=== PATIENT | female | born 1970 | race Caucasian/White ===

== ENCOUNTER 2019-03-05 20:14 | Emergency (ER) | payer OTHER ==
[2019-03-05] MEDS ORDERED: NS(*) 0.9% 1000 ML BAG 1,000 ML IV ONE (20:26)
--- NOTE | 2019-03-05 20:26 | ER Report ---
History and Physical Time Seen By MD: 20:20 Hx. of Stated Complaint: FACE/NECK SWOLLEN. HAS BEEN COUGHING UP GREEN STUFF, CONGESTED, EARS HURT HPI/ROS CHIEF COMPLAINT: Difficulty breathing HISTORY OF PRESENT ILLNESS: 48-year-old female who recently moved here from [place] with mental health problems on medication. She was in a psychiatric facility after her committed suicide. Patient's on medication appropriate to her diagnoses. Patient now notes increasing shortness of breath for one week. She has a productive cough of green and yellow sputum. She notes some low-grade fevers. Today she comes in with severe shortness of breath. She does not where O2. Her room air pulse ox was 68% on arrival. She was placed on supplemental O2 by nasal cannula and her saturations rapidly rising 4 L into the low 90s. She denies chest pain or leg swelling. REVIEW OF SYSTEMS: Respiratory: As above Cardiovascular: No chest pain, no palpitations. Gastrointestinal: No vomiting, no abdominal pain. Musculoskeletal: No back pain. Allergies: Coded Allergies: aspirin (Verified Allergy, Intermediate, 03/05/19) Home Meds Active Scripts Albuterol Sulfate (PROVENTIL HFA) 6.7 Gm Inh, 2 PUFF INH Q4-6H PRN for difficulty breathing, #1 INH 2 Refills Prov:ANTOINE FLORES DO 03/05/19 Albuterol Sulfate 0.083% (ALBUTEROL SULFATE 0.083%) 2.5 Mg/3 Ml Vial.neb, 2.5 MG INH Q6H PRN for difficulty breathing, #25 INH 1 Refill Prov:ANTOINE FLORES DO 03/05/19 Prednisone (PREDNISONE) 20 Mg Tablet, 20 MG PO QDAY for reduce lung inflamm ation, #12 2 by mouth daily for 4 days then 1 by mouth daily for 4 days Prov:ANTOINE FLORES DO 03/05/19 Cefuroxime Axetil (CEFUROXIME) 500 Mg Tablet, 500 MG PO BID for infection, #14 TAB Prov:ANTOINE FLORES DO 03/05/19 Reported Medications Lisinopril (LISINOPRIL) 20 Mg Tablet, 20 MG PO QDAY, TAB 03/05/19 Escitalopram Oxalate (ESCITALOPRAM OXALATE) 10 Mg Tablet, 10 MG PO QDAY, TAB 03/05/19 Quetiapine Fumarate (QUETIAPINE FUMARATE) 200 Mg Tablet, 200 MG PO 6/20/19 Omeprazole (OMEPRAZOLE) 20 Mg Capsule.dr, 1 CAP PO QDAY, CAP 03/05/19 Past Medical/Surgical History Mental health disorder, hypertension, COPD, not O2 dependent Reviewed Nurses Notes: Yes Old Medical Records Reviewed: Yes Constitutional Vital Sign - Last 24 Hours 03/05/19 03/05/19 03/05/19 03/05/19 20:19 20:26 20:29 20:30 Temp 98.5 Pulse 107 86 Resp 20 B/P (MAP) 198/107 152/94 (113) Pulse Ox 68 96 O2 Delivery Room Air O2 Flow Rate 3.0 03/05/19 03/05/19 03/05/19 03/05/19 20:44 20:54 20:54 20:59 Pulse 85 78 75 Resp 18 Pulse Ox 94 95 97 O2 Delivery Nasal Cannula O2 Flow Rate 3.0 03/05/19 03/05/19 03/05/19 03/05/19 21:14 21:29 21:34 21:44 Pulse 73 79 76 82 Resp 18 Pulse Ox 100 100 95 03/05/19 03/05/19 03/05/19 03/05/19 21:59 22:24 22:34 22:39 Pulse 83 78 79 B/P (MAP) 145/83 (103) Pulse Ox 90 95 91 03/05/19 03/05/19 03/05/19 03/05/19 22:54 23:09 23:24 23:39 Pulse 82 84 81 76 Pulse Ox 92 91 90 88 Intake and Output 03/05/19 03/05/19 03/06/19 15:01 23:01 07:01 Intake Total 1000 ml Balance 1000 ml Physical Exam Moderate air hunger, pulse ox 68% on room air. General Appearance: The patient is alert, has no immediate need for airway protection and no current signs of toxicity. Slightly pale appearing, skin warm and dry HEENT: Pupils equal and round no injection. TMs normal, oropharynx with moderate erythema, no exudate Respiratory: Decreased breath sounds throughout, expiratory wheezing throughout, along inspiration Cardiac: regular rate and rhythm Gastrointestinal: Abdomen is soft and non tender, no masses, bowel sounds normal. Musculoskeletal: Neck: Neck is supple and non tender. No JVD, no lymphadenopathy Extremities have full range of motion and are non tender. No edema, no calf tenderness Skin: No rashes or lesions. DIFFERENTIAL DIAGNOSIS: After history and physical exam differential diagnosis was considered for shortness of breath including but not limited to pulmonary infectious process, COPD, asthma, pulmonary embolus and congestive heart failure. Medical Decision Making Data Points Result Diagram: 03/05/19204403/05/192044 Laboratory Hematology Test 03/05/19 20:45 Red Blood Count 4.68 M/uL (4.17-5.56) Mean Corpuscular Volume 85.0 fL (80.0-96.0) Mean Corpuscular Hemoglobin 28.5 pg (26.0-33.0) Mean Corpuscular Hemoglobin Concent 33.5 g/dL (32.0-36.0) Red Cell Distribution Width 14.0 % (11.5-14.5) Mean Platelet Volume 8.0 fL (7.2-11.1) Neutrophils (%) (Auto) 60.5 % (39.4-72.5) Lymphocytes (%) (Auto) 28.3 % (17.6-49.6) Monocytes (%) (Auto) 8.6 % (4.1-12.4) Eosinophils (%) (Auto) 1.6 % (0.4-6.7) Basophils (%) (Auto) 1.0 % (0.3-1.4) Nucleated RBC Relative Count (auto) 0.1 /100WBC Neutrophils # (Auto) 5.4 K/uL (2.0-7.4) Lymphocytes # (Auto) 2.5 K/uL (1.3-3.6) Monocytes # (Auto) 0.8 K/uL (0.3-1.0) Eosinophils # (Auto) 0.1 K/uL (0.0-0.5) Basophils # (Auto) 0.1 K/uL (0.0-0.1) Nucleated RBC Absolute Count (auto) 0.01 K/uL D-Dimer Quantitative (PE/DVT) 0.69 ug/ml (0-0.50) Sodium Level 144 mmol/L (137-145) Potassium Level 3.7 mmol/L (3.5-5.0) Chloride Level 103 mmol/L (98-107) Carbon Dioxide Level 31 mmol/L (22-31) Blood Urea Nitrogen 16 mg/dl (7-18) Creatinine 0.70 mg/dl (0.52-1.04) Glomerular Filtration Rate Calc > 60.0 Random Glucose 116 mg/dl (75-110) Lactate 1.3 mmol/L (0.7-2.1) Calcium Level 9.5 mg/dl (8.4-10.2) Total Bilirubin 0.4 mg/dl (0.2-1.3) Aspartate Amino Transf (AST/SGOT) 22 U/L (0-35) Alanine Aminotransferase (ALT/SGPT) 37 U/L (0-56) Alkaline Phosphatase 115 U/L (0-126) Troponin I < 0.012 ng/ml B-Type Natriuretic Peptide 71 pg/ml (0-100) Total Protein 6.6 g/dl (6.3-8.2) Albumin 3.6 g/dl (3.5-5.0) Chemistry Test 03/05/19 20:45 White Blood Count 8.9 k/uL (4.5-11.0) Red Blood Count 4.68 M/uL (4.17-5.56) Hemoglobin 13.3 g/dL (12.0-16.0) Hematocrit 39.8 % (34.0-47.0) Mean Corpuscular Volume 85.0 fL (80.0-96.0) Mean Corpuscular Hemoglobin 28.5 pg (26.0-33.0) Mean Corpuscular Hemoglobin Concent 33.5 g/dL (32.0-36.0) Red Cell Distribution Width 14.0 % (11.5-14.5) Platelet Count 310 K/uL (150-450) Mean Platelet Volume 8.0 fL (7.2-11.1) Neutrophils (%) (Auto) 60.5 % (39.4-72.5) Lymphocytes (%) (Auto) 28.3 % (17.6-49.6) Monocytes (%) (Auto) 8.6 % (4.1-12.4) Eosinophils (%) (Auto) 1.6 % (0.4-6.7) Basophils (%) (Auto) 1.0 % (0.3-1.4) Nucleated RBC Relative Count (auto) 0.1 /100WBC Neutrophils # (Auto) 5.4 K/uL (2.0-7.4) Lymphocytes # (Auto) 2.5 K/uL (1.3-3.6) Monocytes # (Auto) 0.8 K/uL (0.3-1.0) Eosinophils # (Auto) 0.1 K/uL (0.0-0.5) Basophils # (Auto) 0.1 K/uL (0.0-0.1) Nucleated RBC Absolute Count (auto) 0.01 K/uL D-Dimer Quantitative (PE/DVT) 0.69 ug/ml (0-0.50) Glomerular Filtration Rate Calc > 60.0 Lactate 1.3 mmol/L (0.7-2.1) Calcium Level 9.5 mg/dl (8.4-10.2) Total Bilirubin 0.4 mg/dl (0.2-1.3) Aspartate Amino Transf (AST/SGOT) 22 U/L (0-35) Alanine Aminotransferase (ALT/SGPT) 37 U/L (0-56) Alkaline Phosphatase 115 U/L (0-126) Troponin I < 0.012 ng/ml B-Type Natriuretic Peptide 71 pg/ml (0-100) Total Protein 6.6 g/dl (6.3-8.2) Albumin 3.6 g/dl (3.5-5.0) Coagulation Test 03/05/19 20:45 D-Dimer Quantitative (PE/DVT) 0.69 ug/ml EKG/Imaging EKG Interpretation 12 lead EK Rhythm: normal sinus rhythm [place]: normal QRS: Prolonged QT 504 ms (patient on Seroquel) ST segments: normal, no evidence of ischemia or dysrhythmia Imaging Results: CT scan of the CTA chest pulmonary angiogram was obtained. The results of the study are CT CTA CHEST W & W/O CON HISTORY: dyspne pox 68% elevated d-dimer TECHNIQUE: CTA chest with intravenous contrast attention to pulmonary arteries. Sagittal, coronal and slab 3D MIP coronal reconstructed images were also created for further evaluation and interpretation. One of the following dose optimization techniques was utilized in the performance of this exam: Automated exposure control; adjustment of the mA and/or kV according to the patient's size; or use of an iterative reconstruction technique. Specific details can be referenced in the facility's radiology CT exam operational policy. CONTRAST: 75 mL Isovue-370. COMPARISON: None. FINDINGS: Heart/vessels: Satisfactory opacification of the pulmonary arteries without visualized pulmonary embolus. Mediastinum: Negative. Lymph nodes: Negative. Lungs/pleura: Background of moderate to advanced emphysematous change. Mild atelectasis within the lung bases. No infiltrate or consolidation identified. Visualized upper abdomen: Negative. Bones/soft tissues: Negative. IMPRESSION: 1. No acute findings. Negative for pulmonary embolus. 2. Background of moderate to advanced emphysematous change. The study was read by the radiologist. I viewed the images myself on the PACS system. ED Course/Re-evaluation Clinical Indication for ER IV: IV Access ED Course Patient was admitted to an examination room. H&P was done. The differential diagnoses was considered. On clinical examination, patient appears with gross air hunger and shortness of breath. Her pulse ox is quite low, 68% on room air. She's percent supplemental O2 and responds rapidly. Patient is from [place], is been here 2 weeks. She's been short of breath for one week with what sounds like an acute infection. She has productive cough of green sputum. She notes some intermittent low-grade fevers. She denies chest pain or leg swelling. Patient's EKG is unremarkable. Her troponin is unremarkable. Her d-dimer is elevated. A CTA pulmonary angiogram is performed. Which shows no evidence of pulmonary embolism. She does have extensive COPD changes consistent with emphysema. Patient be treated with Ceftin, prednisone, home nebulizers and home O2. She is advised to follow-up with primary care in 3-5 days for recheck of her pulse ox. Decision to Disposition Date: Mar 05, 2019 Decision to Disposition Time: 22:50 Critical Care Time I spent a total of 60 minutes of critical care time in obtaining history, performing a physical exam, bedside monitoring of interventions, collecting and interpreting tests and discussion with consultants but not including time spent performing procedures. Depart Departure Latest Vital Signs Vital Signs Date Time Temp Pulse Resp B/P (MAP) Pulse Ox O2 Delivery O2 Flow Rate FiO2 03/05/19 23:39 76 88 03/05/19 22:24 145/83 (103) 03/05/19 21:34 18 03/05/19 20:54 Nasal Cannula 3.0 03/05/19 20:19 98.5 Impression: Primary Impression: Acute bronchitis Additional Impressions: COPD exacerbation Hypoxemia Condition: Improved Disposition: HOME OR SELF-CARE Referrals: RANDI PEREZ MD, FARRUKH MD New Scripts Albuterol Sulfate (PROVENTIL HFA) 6.7 Gm Inh 2 PUFF INH Q4-6H PRN for difficulty breathing, #1 INH 2 Refills Prov: ANTOINE FLORES 03/05/19 Albuterol Sulfate 0.083% (ALBUTEROL SULFATE 0.083%) 2.5 Mg/3 Ml Vial.neb 2.5 MG INH Q6H PRN for difficulty breathing, #25 INH 1 Refill Prov: ANTOINE FLORES [facility] 03/05/19 Prednisone (PREDNISONE) 20 Mg Tablet 20 MG PO QDAY for reduce lung inflammation, #12 2 by mouth daily for 4 days then 1 by mouth daily for 4 days Prov: ANTOINE FLORES [facility] 03/05/19 Cefuroxime Axetil (CEFUROXIME) 500 Mg Tablet 500 MG PO BID for infection, #14 TAB Prov: MARKANTOINE DO 03/05/19 Patient Instructions: Acute Bronchitis (ED), COPD (Chronic Obstructive Pulmonary Disease) (ED) Additional Instructions: Take medications as prescribed Follow-up with primary care in 3-5 days. Problem Qualifiers Primary Impression: Acute bronchitis Bronchitis organism: unspecified organism Qualified Codes: J20.9 - Acute bronchitis, unspecified MARKANTOINE DO Mar 05, 2019 20:26
[2019-03-05] MEDS ORDERED: ESCI10TA8 PO (20:29)
[2019-03-05] MEDS ORDERED: LISI20TA29 PO (20:29)
[2019-03-05] MEDS ORDERED: QUET200T PO (20:29)
[2019-03-05] MEDS ORDERED: OMEP-126 PO (20:29)
[2019-03-05] MEDS ORDERED: methylPREDNIS SUCC 125 MG/2ML IVP ONE (20:30)
[2019-03-05] MEDS ORDERED: ALBUTEROL/IPRATROPIUM 3 ML NEB ONE (20:43)
[2019-03-05 21:00] LABS: PLATELET COUNT, AUTOMATED 310 K/uL (150-450)
[2019-03-05] MEDS: ALBUTEROL/IPRATROPIUM 3 ML NEB NEB SCH ×2 (21:01→21:05)
[2019-03-05] MEDS ORDERED: IOPAMIDOL 76% 100 ML INFUS BTL 100 ML ONE (21:37)
[2019-03-05] MEDS ORDERED: NS(*) 0.9% 50 ML BAG 50 ML ONE (21:38)
[2019-03-05 22:24] VITALS: BP 145/83
--- NOTE | 2019-03-05 22:46 | RADIOLOGY IMAGING REPORT ---
FACILITY: [facility] PATIENT NAME: Laura Chisholm : 1970 MR: [id number] V: [id number] EXAM DATE: ORDERING PHYSICIAN: ANTOINE FLORES TECHNOLOGIST: Location: [facility] Patient: Laura Chisholm : 1970 Visit/Account:[id number] Date of Sevice: 03/05/2019 CT CTA CHEST W & W/O CON HISTORY: dyspne pox 68% elevated d-dimer TECHNIQUE: CTA chest with intravenous contrast attention to pulmonary arteries. Sagittal, coronal a nd slab 3D MIP coronal reconstructed images were also created for further evaluation and interpretati on. One of the following dose optimization techniques was utilized in the performance of this exam: Autom ated exposure control; adjustment of the mA and/or kV according to the patient's size; or use of an i terative reconstruction technique. Specific details can be referenced in the facility's radiology CT exam operational policy. CONTRAST: 75 mL Isovue-370. COMPARISON: None. FINDINGS: Heart/vessels: Satisfactory opacification of the pulmonary arteries without visualized pulmonary emb olus. Mediastinum: Negative. Lymph nodes: Negative. Lungs/pleura: Background of moderate to advanced emphysematous change. Mild atelectasis within the l maria de jesus bases. No infiltrate or consolidation identified. Visualized upper abdomen: Negative. Bones/soft tissues: Negative. IMPRESSION: 1. No acute findings. Negative for pulmonary embolus. 2. Background of moderate to advanced emphysematous change. Report Dictated By: Pierre Patton MD at 03/05/2019 10:33 PM Report E-Signed By: Pierre Patton MD at 03/05/2019 10:41 PM WSN:[id number]
[2019-03-05] MEDS ORDERED: ALBU2.5V36 INH (22:56)
[2019-03-05] MEDS ORDERED: CEFU500T10 PO (22:56)
[2019-03-05] MEDS ORDERED: ALB6.7R INH (22:56)
[2019-03-05] MEDS ORDERED: PRED20TA6 PO (22:56)
[2019-03-05] MEDS ORDERED: ALBUTEROL 2.5 MG/3 ML NEB NEB ONE (23:20)
--- NOTE | 2019-03-05 23:46 | EKG ---
FACILITY: [facility] PATIENT NAME: SYLVIA PARK : [id number] MR: [id number] V: [id number] EXAM DATE: ORDERING PHYSICIAN: ANTOINE FLORES TECHNOLOGIST: KYLE Odom Reason : dyspnea, Pox 68% RA Blood Pressure : / mmHG Vent. Rate : 091 BPM Atrial Rate : 091 BPM P-R Int : 128 ms QRS Dur : 080 ms QT Int : 410 ms P-R-T Axes : 070 047 074 degrees QTc Int : 504 ms Sinus rhythm Probable left atrial enlargement Nonspecific ST findings inferolateral leads Prolonged QT Abnormal ECG No previous ECGs available Confirmed by ISAI MEDEL [id number]) on 03/06/2019 6:46:10 AM Referred By: Confirmed By:ISAI MEDEL
== END 2019-03-05 23:51 | disposition home or self-care (01) ==
LOC: ER 20:28
DX: J20.9 Acute bronchitis, unspecified (principal); R09.02 Hypoxemia; J44.1 Chronic obstructive pulmonary disease with (acute) exacerbation
CPT/HCPCS: 36415; 71275; 83605; 83880; 84484; 85025; 85379; 87040; 93005; 94640; 96374; 99284; J2930; J7030; J7050; J7613; J7620; Q9967; 82040; 82247; 82310; 82374; 82435; 82565; 82947; 84075; 84132; 84155; 84295; 84450; 84460; 84520; 92953; 96361